=== PATIENT | female | born 1950 | race Caucasian/White ===

== ENCOUNTER → 2018-02-05 | Outpatient (CLI) | payer MEDICARE, OTHER ==
[~2018-02-05] MED LIST: ASPI-1471 PO; BILB100C2 PO; GINK120C PO; GLUC100026 PO; IBUP-56 PO; LORA-802 PO; LUTE1BEA PO; METF-411 PO; METF-51 PO; METO100T20 PO; METO25TA91 PO; MULT-865 PO; PNEU0.5D3 IM; ROSU20TA23 PO; TRI05T TP; UBIQ75CA PO
[2018-02-05 11:26] LABS: PLATELET COUNT, AUTOMATED 238 K/uL (150-450)
== END ==
LOC: LAB 11:19
PROVIDERS: ATTEND Nurse Practitioner Family
DX: L65.9 Nonscarring hair loss, unspecified (principal); R79.89 Other specified abnormal findings of blood chemistry
CPT/HCPCS: 36415; 82728; 83540; 84403; 84439; 84443; 84480; 85025